=== PATIENT | female | born 1960 | race Caucasian/White ===

== ENCOUNTER 2025-07-16 09:10 | Day surgery (SDC) | payer OTHER, SELFPAY ==
[2025-07-16 10:23] LABS: Glucose - Point of Care 170 mg/dl (70-99)
--- NOTE | 2025-07-16 10:44 | ITS.CL.CARDI ---
[employer] [facility] - Cardioversion
Cardioversion
Procedure Report:
Procedure: Direct current electrical cardioversion
Pre-operative diagnosis: Persistent atrial fibrillation
Post-operative diagnosis: Persistent atrial fibrillation status post DC cardioversion to sinus rhythm
Anesthesia: MAC
Attending Physician: Aj Villanueva MD
Procedure Description: The patient was brought to the electrophysiology laboratory in the fasting state. Adherence to anticoagulation regimen was confirmed. Informed consent was obtained from the patient prior to the start of the procedure.
Electrodes were placed on the patient and connected to an external defibrillator. Monitoring of blood pressure, ECG tracings, and pulse oximetry was initiated. The pads were applied to the patient in the anterior and posterior positions. The patient
was sedated by the anesthesiologist. A 200 joule biphasic synchronized shock was delivered to the patient under MAC anesthesia. Sinus rhythm was successfully restored. The patient recovered uneventfully from MAC anesthesia. There were no immediate
post-procedure complications. The patient left the lab in good condition. The attending physician was present throughout the entire procedure.
Impression: Successful direct current cardioversion with jehovah's witness of sinus rhythm after one 200 joule biphasic synchronized shock.
== END 2025-07-16 11:30 | disposition home or self-care (01) ==
LOC: CATH 09:10
PROVIDERS: ATTENDING PHYSICIAN Internal Medicine Cardiovascular Disease; FAMILY PHYSICIAN Nurse Practitioner Family; OTHER PHYSICIAN Internal Medicine Cardiovascular Disease
DX: I48.19 Other persistent atrial fibrillation (principal); I10 Essential (primary) hypertension; E11.9 Type 2 diabetes mellitus without complications; I34.0 Nonrheumatic mitral (valve) insufficiency; Z79.01 Long term (current) use of anticoagulants; Z79.84 Long term (current) use of oral hypoglycemic drugs
CPT/HCPCS: 82962; 92960; 93005

== ENCOUNTER → 2025-08-06 09:31 | Outpatient (REF) | payer OTHER, SELFPAY | LOC: RCS 09:31 | PROVIDERS: ATTENDING PHYSICIAN Internal Medicine Cardiovascular Disease; FAMILY PHYSICIAN Nurse Practitioner Family | DX: Z02.1 Encounter for pre-employment examination (principal); I48.0 Paroxysmal atrial fibrillation | CPT/HCPCS: 93017 ==

== ENCOUNTER 2025-09-23 07:51 | Day surgery (SDC) | payer MEDICARE, SELFPAY ==
[2025-09-03 13:05] LABS: Hematocrit 39.8 % (37.0-47.0); Hemoglobin 13.2 g/dL (12.0-16.0); Mean Corp Hgb Conc. 33.2 g/dL (33.0-37.0); Mean Corpuscular Volume 91.1 fL (81.0-99.0); Nucleated Red Blood Cells % 0 %; Platelet Count 233 10^3/uL (130-400); Red Cell Dist. Width 13.1 % (11.5-14.5)
[2025-09-03 13:17] LABS: INR 1.14; PT 15.1 Sec (11.4-14.6)
[2025-09-03 13:19] LABS: ALT (SGPT) 31 U/L (0-35); AST (SGOT) 25 U/L (14-36); Albumin 4.9 g/dl (3.5-5.0); Alkaline Phosphatase 78 U/L (38-126); Blood Urea Nitrogen 19 mg/dl (7-17); Calcium 10.0 mg/dl (8.4-10.2); Carbon Dioxide 28 mmol/L (22-30); Chloride 105 mmol/L (98-107); Glucose 155 mg/dl (70-99); Magnesium 1.8 mg/dl (1.6-2.3); Potassium 4.8 mmol/L (3.5-5.1); Sodium 140 mmol/L (135-145); Total Protein 7.4 g/dl (6.3-8.2); eGFR > 60.00
[2025-09-03 13:50] VITALS: BMI 33.8
[2025-09-23] VITALS (16 sets, daily range): BP systolic 107–164; BP diastolic 57–89; BMI 33.8
[2025-09-23 08:42] LABS: Glucose - Point of Care 142 mg/dl (70-99)
[2025-09-23 12:44] LABS: Glucose - Point of Care 142 mg/dl (70-99)
--- NOTE | 2025-09-23 15:30 | PTCARENOTE ---
late note due to pt care.
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 Right groin site CDI. Pt educated on restrictions and expected OOB time. Oriented to room and unit. Call calles within reach.
--- NOTE | 2025-09-23 15:54 | CM ---
Chart reviewed. Patient is independent of ADLS, lives alone in a 2 STH, 1st floor set up, 2 KELLY, 0 DME. Plan is for the patient to return home. CM to follow
--- NOTE | 2025-09-23 16:43 | ITS.CL.ABL ---
Laboratory Associate - Ablation
Ablation
Procedure Report:
ELECTROPHYSIOLOGIC STUDY AND POSSIBLE ABLATION
DATE: September 23, 2025
Primary Care Provider: Altagracia Stroud CRNP
INDICATION:
Symptomatic Atrial Fibrillation.
Paroxysmal
HISTORY: See H and P.
Symptomatic AF, poorly controlled with attempted medical therapy.
Mrs Goodrich underwent PVI ablation 07/2021, subsequently sotalol was discontinued.
She has recurred with symptomatic atrial fibrillation and presents now for EPS with mapping and ablation.
HAS-BLED: 1
CHADSVASc: 3
Age
DM
F Gender
PRESENTING RHYTHM: SR
HISTORY: See H and P.
Symptomatic AF, poorly controlled with attempted medical therapy.
ANTICOAGULATION: Rivaroxaban 20 mg daily
'TIME-OUT': called and confirmed.
SEDATION/ANESTHESIA: provided via the anesthesia department using general anesthesia.
PROCEDURE:
Ultrasound Guidance with real-time visualization of needle insertion and vessel patency performed by ca for femoral venous Vascular Access.
Under real-time US guidance, the needle was advanced with negative pressure into the vein. The needle was seen entering the vessel lumen with a good return of dark red flow, the syringe was removed, non-pulsatile, dark red blood low was noted and
the wire was passed without difficulty, then the needle was removed. US confirmed the wire was in the vein, not going into an artery,
Images were taken and saved for the patient's permanent record. Imaging findings typical femoral venous anatomy. Direct visualization of needle puncture into the femoral vein was observed and recorded.
3 sheaths were inserted into the right femoral vein.
10 Fr, 10Fr, 7 Fr. A 10fr sheath was then exchanged for the 16.8 Fr Faradrive deflectable sheath and dilator over a wire.
A decapolar CS catheter was positioned within the CS for mapping and pacing.
The intracardiac ultrasound catheter was positioned in the RA for continuous intracardiac ultrasound imaging.
Heparin bolus and infusion to target ACT at 300 -350 seconds was administered. Transseptal puncture was performed. This entailed advancing a sheath with dilator into the superior vena cava and withdrawing both (monitoring intracardiac ultrasound,
fluoroscopy and tip pressure) with the tip oriented toward the atrial septum. The fossa ovalis was engaged (indicated by sudden displacement of the sheath tip as well as tenting of the fossa seen on intracardiac ultrasound).
The FarapComptTIA transseptal system utilizing VersaCross RF was used. Left atrial catheter position was confirmed by echocardiographic imaging and fluoroscopy followed by RF delivery using the [employer] system resulting in successful LA access with
pressure monitoring demonstrating LA pressure waveforms (LA mean pressure [ ] mm Hg). The Faradrive sheath was advanced over the dilator and positioned in the left atrium.
The bTendo Grid multipolar mapping catheter was initially positioned through the transseptal sheath for high density mapping.
Geometry and voltage mapping was performed using the bTendo multipolar grid catheter. Ensite-X was utilized for three-dimensional electroanatomical mapping.
A 3-D map was created using Ensite-X in Voxel mode. A 3-D reconstructed CT image was compared to the 3-D Navex map to assist in anatomic evaluation, mapping and ablation.
The [employer] PFA catheter and system was used for cardiac ablation. Catheter positioning was guided and confirmed using both I.C.E. and fluoroscopy.
High density electroanatomical three-dimensional mapping demonstrated four PVs: LSPV, LIPV, RSPV, RIPV.
Ablation strategy included PVI as well as mapping for extra PV contributors to atrial fibrillation which would also be targeted if present.
Mapping finds reconnection at the left superior vein towards its superior posterior quadrant as well as the edouard between the left superior and left inferior pulmonary vein.
Delivery of pulsed electric field energy eliminated the PV connection
After accomplishing pulmonary venous isolation, mapping identified additional areas likely to be extra PV contributors to atrial fibrillation. These areas demonstrated patchy low voltage as well as complex fractionated electrograms. These areas can
be sites for the formation of rotors which can drive and maintain atrial fibrillation. These areas are known to be significant contributors to initiation and perpetuation of atrial fibrillation.
Additional energy applications/additional ablation sets targeted extra PV contributors to atrial fibrillation.
Targets for additional PFA ablation included:
LA posterior wall targeted with pulsed electric field energy isolating the posterior wall of the left atrium
After ablation of the posterior wall, additional targets were addressed:
LA inferior floor
The ridge of tissue between the left atrial appendage and the left sided pulmonary veins (Ligament of Abiodun )
These areas were ablated using pulsed electric field energy eliminating the extra PV contributors to atrial fibrillation.
Post ablation mapping finds entrance and exit block at each of the pulmonary veins, the LA posterior wall and at the additional lines at the inferior/floor of the LA and the Ligament of Marshal rendering the sites no longer able to contribute to
atrial fibrillation.
Programmed electrostimulation including burst atrial pacing as well the delivery of decremental extrastimuli down to atrial effective refractory period and no sustained arrhythmias could be induced.
I.C.E. :
Pre-Ablation Post-Ablation
LVEF: 55 % 55 %
WMA: none none
Pericardial effusion: none none
COMPLICATIONS:
SUMMARY:
- Mapping and ablation to isolate the PVs resulting in electrical isolation of the pulmonary veins
- Additional AF ablation sets X 3 after PVI (LA posterior wall, Inf/floor of the LA posterior wall, Ligament of Abiodun) resulting in elimination of the targeted extra PV contributors to atrial fibrillation.
- 3-D Electroanatomical Mapping
- Intracardiac Ultrasound
- Ultrasound guidance for vascular access
RECOMMENDATIONS:
- Observe in monitored bed.
- Maintain oral anticoagulation, rivaroxaban 20 mg daily.
- Will arrange office visit with MONSE Cortes in 3 to 4 months
Copy to:
Primary Care Provider: Altagracia Stroud CRNP
[2025-09-23 16:57] LABS: Glucose - Point of Care 252 mg/dl (70-99)
[2025-09-23] MEDS: XARELTO 20 MG PO (17:07)
[2025-09-23] MEDS: LIPITOR 20 MG PO (17:07)
[2025-09-23] MEDS: TYLENOL 650 MG PO (17:07)
[2025-09-23] MEDS: GLUCOTROL 10 MG PO (17:43)
[2025-09-23] MEDS: GLUCOPHAGE 1000 MG PO (17:43)
[2025-09-23] MEDS: MAGNESIUM OXIDE 200 MG PO (17:43)
[2025-09-23 17:44] LABS: Glucose - Point of Care 240 mg/dl (70-99)
[2025-09-23] MEDS: TOPROL XL 25 MG PO (19:33)
--- NOTE | 2025-09-23 21:29 | PTCARENOTE ---
Received patient at change of shift. SR on the monitor, HR in the 60s. R groin CDI. Pt ambulating in room. No complaints from pt at this time, call calles within reach.
[2025-09-23 22:11] LABS: Glucose - Point of Care 203 mg/dl (70-99)
[2025-09-24 03:45] VITALS: BP 104/67
[2025-09-24 04:42] LABS: Hematocrit 35.4 % (37.0-47.0); Hemoglobin 11.4 g/dL (12.0-16.0); Mean Corp Hgb Conc. 32.2 g/dL (33.0-37.0); Mean Corpuscular Volume 95.2 fL (81.0-99.0); Platelet Count 205 10^3/uL (130-400); Red Cell Dist. Width 13.2 % (11.5-14.5)
[2025-09-24 04:51] LABS: Blood Urea Nitrogen 20 mg/dl (7-17); Calcium 9.2 mg/dl (8.4-10.2); Carbon Dioxide 23 mmol/L (22-30); Chloride 107 mmol/L (98-107); Estimated Creatinine Clearance 90 ml/min; Glucose 187 mg/dl (70-99); Magnesium 1.9 mg/dl (1.6-2.3); Potassium 4.3 mmol/L (3.5-5.1); Sodium 140 mmol/L (135-145); eGFR > 60.00
[2025-09-24 07:34] VITALS: BP 129/74
[2025-09-24 08:01] LABS: Glucose - Point of Care 169 mg/dl (70-99)
[2025-09-24] MEDS: GLUCOPHAGE 1000 MG PO (08:32)
[2025-09-24] MEDS: TOPROL XL 25 MG PO (08:33)
[2025-09-24] MEDS: GLUCOTROL 10 MG PO (08:33)
[2025-09-24 08:39] LABS: Glycohemoglobin (HgbA1c) 7.2 % (4.0-5.9)
--- NOTE | 2025-09-24 09:26 | W.PN.CARDCBS ---
Today's Communication / Plan
-
post redo ablation stable for d/c home
Impression / Plan
-
Primary Care Provider: Altagracia Stroud CRNP
Primary silica filter operator: Davy Stevenson MD
Impression:
Paroxysmal Symptomatic Atrial Fibrillation.
Prior PVI 2020
post redo PVI 09/23/25
HTN
HLD
DM2
Osteoarthritis
Anxiety/Depression
Pulmonary nodule
Plan:
post ablation feels good
groin stable
tele SR/SB
OAC Xarelto
continue metoprolol 25mg bid
Activity restrictions reviewed
f/u Dr. Sorensen in 3 mo
home today
SUMMARY:
- Mapping and ablation to isolate the PVs resulting in electrical isolation of the pulmonary veins
- Additional AF ablation sets X 3 after PVI (LA posterior wall, Inf/floor of the LA posterior wall, Ligament of Abiodun) resulting in elimination of the targeted extra PV contributors to atrial fibrillation.
- 3-D Electroanatomical Mapping
- Intracardiac Ultrasound
- Ultrasound guidance for vascular access
Progress Note - Certified Nursing Assistant
Subjective
Date of Service: September 24, 2025
denies cp, sob
Objective
Labs:
09/24/25 03:55
09/24/25 03:55
Labs
Hgb 11.4 g/dL (12.0-16.0) L 09/24/25 03:55
Hct 35.4 % (37.0-47.0) L 09/24/25 03:55
Plt Count 205 10^3/uL (130-400) 09/24/25 03:55
PT 15.1 Sec (11.4-14.6) H 09/03/25 12:07
INR 1.14 09/03/25 12:07
Sodium 140 mmol/L (135-145) 09/24/25 03:55
Potassium 4.3 mmol/L (3.5-5.1) 09/24/25 03:55
BUN 20 mg/dl (7-17) H 09/24/25 03:55
Creatinine 0.7 mg/dL (0.6-1.0) 09/24/25 03:55
Glucose 187 mg/dl (70-99) H 09/24/25 03:55
Vital Signs and I&O:
Vital Signs
Temp Pulse Resp BP Pulse Ox
98 F 53 20 129/74 95
09/24/25 07:34 09/24/25 08:33 09/24/25 07:34 09/24/25 08:33 09/24/25 07:34
Vital Signs
Temp Pulse Resp BP Pulse Ox
98 F 53 20 129/74 95
09/24/25 07:34 09/24/25 08:33 09/24/25 07:34 09/24/25 08:33 09/24/25 07:34
Intake & Output
09/22/25 09/23/25 09/24/25 09/25/25
06:59 06:59 06:59 06:59
Intake Total 1140 / 1140
Output Total 200 / 200
Balance 940 / 940
Physical Exam
Physical Exam
NAD, AOX3
S1, S2, RRR
CTAB, non labored, non wheeze
SNTND bsx4
R fem site c/d/i no HT, soft
[2025-09-24] MEDS: FLUZONE HIGH-DOSE 2025-26 0.5 ML IM (10:43)
--- NOTE | 2025-09-24 11:15 | PTCARENOTE ---
Discharge order placed for patient. Discharge instructions reviewed with patient. All questions answered. IV site removed. Site clean, dry, and intact. Tele box removed. Patient discharged in stable condition.
--- NOTE | 2025-09-24 15:09 | W.DS.TRANS ---
DC Summary - Equipment Detailer
-
Discharge Instructions:
Sleep Apnea Risk Intermediate
Discharge Diagnosis/Procedures Atrial fibrillation post ablation
Diet Low Cholesterol,Diabetic, Carb Controlled
Driving Restrictions No driving for 24 hours
Instructions:
Stand-Alone Forms: DC Instructions- Cath/EP Lab
Changes to Home Medications: No
Discharge Medications:
DC Medications w/original date entered in [facility]
atorvastatin 20 mg tablet 20 mg PO QPM High cholesterol 08/11/21
metformin 1,000 mg 24 hr tablet,extended release (gastric reten.) 1,000 mg PO BID Diabetes 11/02/21
rivaroxaban 20 mg tablet (Xarelto) 20 mg PO QPM Blood clot prevention/tx ##0 11/22/21
cholecalciferol (vitamin D3) 50 mcg (2,000 unit) capsule (Vitamin D3) 50 mcg PO DAILY 09/01/25
glipizide 10 mg tablet 10 mg PO BID 09/01/25
metoprolol succinate 25 mg tablet,extended release 24 hr 25 mg PO BID 09/01/25
magnesium oxide 250 mg PO QPM 09/23/25
Home Medication Changes
Pending Results: No
== END 2025-09-24 11:15 | disposition home or self-care (01) ==
LOC: CATH 07:51
PROVIDERS: Nurse Practitioner Adult Health; ATTENDING PHYSICIAN Internal Medicine Cardiovascular Disease; FAMILY PHYSICIAN Nurse Practitioner Family
DX: I48.0 Paroxysmal atrial fibrillation (principal); I48.92 Unspecified atrial flutter; E11.9 Type 2 diabetes mellitus without complications; E66.9 Obesity, unspecified; E78.5 Hyperlipidemia, unspecified; F32.A Depression, unspecified; F41.9 Anxiety disorder, unspecified; I10 Essential (primary) hypertension; I44.30 Unspecified atrioventricular block; M19.90 Unspecified osteoarthritis, unspecified site; Z79.01 Long term (current) use of anticoagulants; Z79.899 Other long term (current) drug therapy; R91.1 Solitary pulmonary nodule; Z90.710 Acquired absence of both cervix and uterus; Z96.653 Presence of artificial knee joint, bilateral; Z88.0 Allergy status to penicillin; Z79.84 Long term (current) use of oral hypoglycemic drugs
CPT/HCPCS: C1732; C1894; C1769; C1730; C1892; 36415; 80048; 80053; 82962; 83036; 83735; 85025; 85027; 85347; 85610; 86850; 86900; 86901; 87070; 90662; 93005; 93656; 93657; C1733; C1766; G0008

== ENCOUNTER → 2025-10-21 15:39 | Outpatient (REF) | payer MEDICARE, SELFPAY | LOC: HWRCS 15:39 | PROVIDERS: ATTENDING PHYSICIAN Internal Medicine Cardiovascular Disease; FAMILY PHYSICIAN Nurse Practitioner Family | DX: I48.0 Paroxysmal atrial fibrillation (principal) | CPT/HCPCS: 93306 ==